=== PATIENT | male | born 1960 | race Caucasian/White ===

== ENCOUNTER → 2019-08-24 11:58 | Outpatient (BNVA) | payer BC, SELFPAY | PROVIDERS: Family Provider Nurse Practitioner; PCP Nurse Practitioner; Visit Provider Nurse Practitioner | DX: E11.65 Type 2 diabetes mellitus with hyperglycemia (principal); E78.2 Mixed hyperlipidemia; I25.10 Atherosclerotic heart disease of native coronary artery without angina pectoris; I10 Essential (primary) hypertension; M25.511 Pain in right shoulder; R39.11 Hesitancy of micturition; J44.9 Chronic obstructive pulmonary disease, unspecified; M25.512 Pain in left shoulder | CPT/HCPCS: 73000; 73030; 80053; 80061; 82044; 83036; 85651; G0103 ==

== ENCOUNTER 2019-10-25 09:18 | Outpatient (CLI) | payer BC, SELFPAY ==
--- NOTE | 2019-10-25 09:36 | NMCV_ITS ---
NM dipti perf SPECT r/s* [id number] Douglas Corona Age: 59 Gender: M : 1960 Exam Date: 10/25/2019 09:36 Ordering Phys: Nancy Cooper MD ([email or web address]) Technologist: MAXIM Pina Exam Location: [facility] Indications: SHORTNESS OF BREATH ATHEROSCLEROSIS STRESS TEST Please see separate stress test report in [facility] for full findings IMAGE PROTOCOL Rest/Stress 1 Exercise Day Radiopharmaceutical Dose (mCi) Administration Site Administered by Rest: Tc-99m 10.5 IV MAXIM Gauthier Sestamibi Stress:Tc-99m 32.8 IV MAXIM Gauthier Sestamibi Rest: 25-Oct-2019 60 Discovery 630 Stress: 25-Oct-2019 15 Discovery 630 Radiopharmaceutical was injected at 85 % maximum heart rate. Images obtained in supine and prone position. SPECT RESULTS Technical Quality: Excellent Raw Data Analysis: Normal Image Corrections: No attenuation or motion correction applied Summed Stress Score: 7 Summed Rest Score: 6 Summed Difference Score: 2 PERFUSION FINDINGS Moderate area of decreased tracer uptake was noted in the mid and apical inferior and mid inferolateral regions. Subtle area of reversibility was noted in the apical inferior and mid inferolateral regions. FUNCTIONAL RESULTS (calculated via Gated SPECT) Stress Image LV EF (%): 57 Stress EDV (mL):134 TID: 0.9 Stress ESV (mL):57 FUNCTIONAL FINDINGS: Segmental wall motion analysis revealed mild diffuse hypokinesia of the septum IMPRESSIONS 1. Myocardial perfusion imaging revealing moderate area of decreased tracer uptake in the mid and apical inferior and mid inferolateral region with a subtle area of reversibility in the apical inferior and mid inferolateral regions, suggestive of myocardial scarring with subtle areas of mike- infarction ischemia, in the distribution of the left circumflex artery/right coronary artery. 2. Normal LV ejection fraction of 57%. 3. LV wall motion analysis revealing mild diffuse hypokinesia of the septum 4. Mildly dilated LV cavity, with an end-systolic volume of 57 mL. No similar previous studies are available for comparison Dr Nancy Cooper MD FACC (Electronically Signed) Final Date: 25 October 2019 16:21 S
--- NOTE | 2019-10-25 09:36 | ECG_ITS ---
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 No acute ST-T changes. At the baseline, the patient's blood pressure was 131/84 mm Hg with a heart rate of 79. The patient exercised for 11 minutes and 15 seconds on a standard Toni protocol. Patient attained a maximum heart rate of 140 beats per minute(86 % of the maximum predicted heart rate) with a blood pressure at the peak exercise of 192/101 mm Hg. The EKG at the peak exercise revealed no significant changes. Patient did not have any chest pain or any significant arrhythmis with the exercise Sestamibi was injected 1 minute prior to the peak exercise During the recovery phase, there were no new changes. Blood pressure at the end of the recovery phase was 79/104 mm Hg with a heart rate of 95 per minute. CONCLUSION: 1. No significant EKG changes with the [treadmill exercise 2. No exercise-induced chest pain or cardiac arrhythmia. Hypertensive response to exercise 3. Good exercise tolerance, attained a maximum of 13.5 METs 4. Sestamibi/Sestamibi perfusion results pending; see separate report. Electronically Signed On 10-28-2019 11:19:37 CDT by Nancy Cooper M.D. [email or web address]
--- NOTE | 2019-10-25 09:38 | USCV_ITS ---
Douglas Corona Age: 59 Gender: M : 1960 Exam Date: 10/25/2019 10:11 Ordering Phys: Nancy Cooper MD ([email or web address]) Technologist: Pierre Vega Exam Location: [facility] Indication: CP BP: 130 / 80 HR: 62 Rhythm: Sinus Technical Quality: Fair MEASUREMENTS (Male / Female) Normal Values 2D ECHO LV Diastolic Diameter PLAX 5.6 cm 4.2 - 5.9 / 3.9 - 5.3 cm LV Systolic Diameter PLAX 3.4 cm IVS Diastolic Thickness 0.9 cm 0.6 - 1.0 / 0.6 - 0.9 cm IVS Systolic Thickness 1.3 cm LVPW Diastolic Thickness 0.8 cm 0.6 - 1.0 / 0.6 - 0.9 cm LVPW Systolic Thickness 2.0 cm LVOT Diameter 2.1 cm LV Ejection Fraction 2D Teich 69.5 % LV Ejection Fraction MOD 2C 74.8 % LV Ejection Fraction 2C AL 74.1 % LA Diameter 3.8 cm LA Width 3.2 cm LA Height 3.9 cm RA Width 3.2 cm RA Height 4.0 cm Aorta at Sinotubular Diameter 2.7 cm M-MODE LV Diastolic Diameter MM 4.3 cm 4.2 - 5.9 / 3.9 - 5.3 cm LV Systolic Diameter MM 3.5 cm LV Ejection Fraction MM Teich 40.0 % IVS Diastolic Thickness MM 0.7 cm 0.6 - 1.0 / 0.6 - 0.9 cm IVS Systolic Thickness MM 1.3 cm LVPW Diastolic Thickness MM 1.1 cm 0.6 - 1.0 / 0.6 - 0.9 cm LVPW Systolic Thickness MM 1.9 cm RV Diastolic Diameter MM 1.3 cm Aortic Annulus Diameter 4.0 cm LA Ao Ratio MM 1.0 MV E Point Septal Separation 1.3 cm DOPPLER AV Peak Velocity 116.0 cm/s LVOT Peak Velocity 102.0 cm/s AV Area Cont Eq vti 2.6 cm squared AV Area Cont Eq pk 3.0 cm squared MV Area PHT 3.5 cm squared Mitral E to A Ratio 1.1 MV E' Velocity 8.0 cm/s Mitral E to MV E' Ratio 10.7 Mitral E to LV E' Lateral Ratio 11.4 Mitral E to LV E' Septal Ratio 10.2 TR Peak Velocity 259.0 cm/s TR Peak Gradient 26.7 mmHg TV Peak E Velocity 114.0 cm/s Right Atrial Pressure 3.0 mmHg Pulmonary Artery Systolic Pressu 29.8 mmHg PV Peak Velocity 125.0 cm/s FINDINGS Left Ventricle Normal LV size with a diminished ejection fraction of around 45 to 50%. Diffuse hypokinesia left ventricle. Right Ventricle The right ventricle is normal in size and function. Right Atrium The right atrium is normal in size. Left Atrium The left atrium is normal in size. Mitral Valve Thickened mitral valve. Trace to mild mitral valve regurgitation. Aortic Valve Thickened aortic valve. Trace aortic valve regurgitation. Tricuspid Valve Trace tricuspid valve regurgitation. Estimated pulmonary artery peak systolic pressure of 30 mmHg Pulmonic Valve Structurally normal pulmonic valve without significant stenosis. There is no pulmonic regurgitation. Pericardium Normal pericardium without effusion. Aorta Normal ascending aorta dimension. CONCLUSIONS Normal LV size with a diminished ejection fraction of around 45 to 50%. Diffuse hypokinesia left ventricle. Thickened mitral valve. Trace to mild mitral valve regurgitation. Thickened aortic valve. Trace aortic valve regurgitation. Trace tricuspid valve regurgitation. Estimated pulmonary artery peak systolic pressure of 30 mmHg. There is no pericardial effusion. There are no intracardiac masses. No previous studies available for comparison Dr Nancy Cooper MD FAC (Electronically Signed) Final Date: 26 October 2019 21:59 S
[2019-10-25 10:17] VITALS: BMI 23.1
[2019-10-25 11:43] VITALS: BP 179/104; PULSE 97
== END 2019-10-25 09:19 | disposition home or self-care (01) ==
LOC: CDL 09:22
PROVIDERS: Family Provider Nurse Practitioner; PCP Nurse Practitioner; Visit Provider Internal Medicine Cardiovascular Disease
DX: R06.02 Shortness of breath (principal); I25.10 Atherosclerotic heart disease of native coronary artery without angina pectoris; R07.9 Chest pain, unspecified; I08.3 Combined rheumatic disorders of mitral, aortic and tricuspid valves; I70.90 Unspecified atherosclerosis; I25.9 Chronic ischemic heart disease, unspecified
CPT/HCPCS: 78452; 93017; 93306; A9500

== ENCOUNTER → 2020-04-25 12:03 | Outpatient (BNVA) | payer BC, SELFPAY | PROVIDERS: Family Provider Nurse Practitioner; PCP Nurse Practitioner; Visit Provider Nurse Practitioner | DX: I10 Essential (primary) hypertension (principal); J44.9 Chronic obstructive pulmonary disease, unspecified; E78.2 Mixed hyperlipidemia; E11.65 Type 2 diabetes mellitus with hyperglycemia; R39.11 Hesitancy of micturition; I25.10 Atherosclerotic heart disease of native coronary artery without angina pectoris; M25.511 Pain in right shoulder; M25.512 Pain in left shoulder; L03.90 Cellulitis, unspecified | CPT/HCPCS: 80053; 80061; 81000; 82043; 83036 ==

== ENCOUNTER → 2020-06-28 16:22 | Outpatient (BNVA) | payer SELFPAY | PROVIDERS: Family Provider Nurse Practitioner; PCP Nurse Practitioner; Visit Provider Nurse Practitioner | DX: R20.0 Anesthesia of skin (principal); R20.2 Paresthesia of skin; M79.605 Pain in left leg | CPT/HCPCS: 82607 ==

== ENCOUNTER → 2020-11-27 11:27 | Outpatient (BNVA) | payer OTHER, SELFPAY | PROVIDERS: PCP Nurse Practitioner; Visit Provider Nurse Practitioner | DX: E13.65 Other specified diabetes mellitus with hyperglycemia (principal); M10.9 Gout, unspecified; I10 Essential (primary) hypertension; J44.9 Chronic obstructive pulmonary disease, unspecified; E78.2 Mixed hyperlipidemia; R39.11 Hesitancy of micturition; M25.511 Pain in right shoulder; M25.512 Pain in left shoulder; N52.9 Male erectile dysfunction, unspecified | CPT/HCPCS: 80053; 80061; 83036; 84550; 85025; 85651; 86140 ==

== ENCOUNTER → 2021-05-08 09:30 | Outpatient (BNVA) | payer OTHER, SELFPAY | PROVIDERS: PCP Nurse Practitioner; Visit Provider Nurse Practitioner | DX: Z20.822 Contact with and (suspected) exposure to COVID-19 (principal) | CPT/HCPCS: 87635 ==

== ENCOUNTER → 2021-07-02 16:52 | Outpatient (BNVA) | payer OTHER, SELFPAY | PROVIDERS: PCP Nurse Practitioner; Visit Provider Nurse Practitioner | DX: E13.65 Other specified diabetes mellitus with hyperglycemia (principal); E78.2 Mixed hyperlipidemia; I10 Essential (primary) hypertension; R39.11 Hesitancy of micturition; M25.511 Pain in right shoulder; M25.512 Pain in left shoulder; M25.50 Pain in unspecified joint | CPT/HCPCS: 80053; 80061; 83036; 86140; 86431 ==

== ENCOUNTER → 2022-03-20 12:21 | Outpatient (BNVA) | payer MEDICARE, SELFPAY | PROVIDERS: PCP Nurse Practitioner; Visit Provider Nurse Practitioner | DX: E13.65 Other specified diabetes mellitus with hyperglycemia (principal) | CPT/HCPCS: 80053; 80061; 81000; 82043; 83036 ==

== ENCOUNTER → 2022-07-24 11:00 | Outpatient (BNVA) | payer MEDICARE, SELFPAY | PROVIDERS: PCP Nurse Practitioner; Visit Provider Nurse Practitioner | DX: E13.65 Other specified diabetes mellitus with hyperglycemia (principal); Z12.5 Encounter for screening for malignant neoplasm of prostate | CPT/HCPCS: 80053; 80061; 82043; 83036; G0103 ==

== ENCOUNTER → 2022-11-27 15:22 | Outpatient (BNVA) | payer MEDICARE, SELFPAY | PROVIDERS: PCP Nurse Practitioner; Visit Provider Nurse Practitioner | DX: E11.65 Type 2 diabetes mellitus with hyperglycemia (principal) | CPT/HCPCS: 80053; 83036 ==

== ENCOUNTER → 2022-12-03 09:44 | Outpatient (BNVA) | payer MEDICARE, SELFPAY | PROVIDERS: PCP Nurse Practitioner; Visit Provider Nurse Practitioner | DX: M47.816 Spondylosis without myelopathy or radiculopathy, lumbar region (principal); M54.50 Low back pain, unspecified; M79.604 Pain in right leg | CPT/HCPCS: 72100 ==

== ENCOUNTER 2023-01-02 14:06 | Outpatient (CLI) | payer MEDICARE, SELFPAY ==
--- NOTE | 2023-01-02 14:30 | MR_ITS ---
WS: [id number] MRI LUMBAR SPINE NONCONTRAST HISTORY: M54.50 - Low back pain, unspecified COMPARISON: None available. TECHNIQUE: Sagittal and axial multisequence imaging is submitted. Focal areas of disc protrusion and facet arthritis in the cervical and thoracic spines. Mild stenosis at C6-7. 2 mm retrolisthesis of L2. Otherwise alignment is normal. There is moderate disc space narrowing and desiccation throughout the lumbar spine. Benign hemangioma at L3. No marrow edema or fracture. Conus terminates normally at L1. L1-L2: Moderate annular disc bulging. Focal LEFT paracentral disc protrusion extending into the subar ticular recess. Moderate ligamentum flavum and facet arthritis. There is disc contacting and encroach ing upon the subarticular recesses and the traversing L2 nerve roots. Mild central and bilateral suba rticular recess stenosis. L2-L3: Diffuse annular disc bulging with osteophytic ridging. LEFT paracentral disc protrusion. Annul ar disc bulging resulting in moderate central, bilateral subarticular recess and RIGHT foraminal sten osis. More severe LEFT foraminal stenosis. L3-L4: Diffuse annular disc bulging and osteophytic ridging. There is a large central disc protrusion extending just cephalad and caudad to the disc level over a length of 1.5 cm. There is significant c ontact on the ventral thecal sac and narrowing of the subarticular recesses. Ligamentum flavum and fa cet arthritis. Severe central, bilateral subarticular recess and moderate foraminal stenosis. L4-L5: Diffuse annular disc bulging with a small central disc protrusion. Moderate ligamentum flavum and facet arthritis. Mild central and bilateral subarticular recess and foraminal stenosis. There is disc contacting the traversing L5 nerve roots. L5-S1: Mild annular disc bulging. Broad-based asymmetric disc bulging to the LEFT. LEFT paracentral a nd foraminal broad-based disc protrusion. Disc protrusion contacts the LEFT S1 nerve root. Moderate b ilateral foraminal stenosis. Mild hyperplasia of the adrenal glands. IMPRESSION: 1. Multiple levels of central and foraminal stenoses and disc protrusions throughout the lumbar spine . 2. L3-4: Large central disc protrusion causing severe central, bilateral subarticular recess and mode rate foraminal stenosis. 3. L4-5: Moderate central, bilateral subarticular recess and foraminal stenosis. Disc contacts the tr aversing L5 nerve roots. 4. L2-3: LEFT paracentral disc protrusion and annular disc bulging resulting in moderate central, eduardo ateral subarticular recess and RIGHT foraminal stenosis. Severe LEFT foraminal stenosis. 5. L1-2: Focal LEFT paracentral disc protrusion extending into the subarticular recess. Disc protrusi on and bulging contacting the traversing L2 nerve roots. Mild central and bilateral subarticular rece ss stenosis. 6. L5-S1: LEFT paracentral and foraminal broad-based disc protrusion disc protrusion contacts the LEF T S1 nerve root. Moderate bilateral foraminal stenosis.
== END 2023-01-02 14:07 | disposition home or self-care (01) ==
PROVIDERS: PCP Nurse Practitioner; Visit Provider Nurse Practitioner
DX: M48.061 Spinal stenosis, lumbar region without neurogenic claudication; M51.26 Other intervertebral disc displacement, lumbar region; M51.27 Other intervertebral disc displacement, lumbosacral region
CPT/HCPCS: 72148

== ENCOUNTER 2023-06-11 14:47 | Outpatient (CLI) | payer MEDICARE, SELFPAY ==
--- NOTE | 2023-06-11 15:00 | CT_ITS ---
WS: [id number] LDCT LUNG CANCER SCREENING HISTORY: Z87.891 - Personal history of nicotine dependence TECHNIQUE: Axial imaging performed from the apices to 1 cm below the costophrenic angles. Coronal and sagittal reformats are submitted with axial MIP series. All CT scans at [facility] use at least one of these dose optimization techniques: automated exposure control; mA and/or kV adjustment per patient size (includes targeted exams where dose is matched to clinical indication); or iterativ e reconstruction. DLP: 64.40 mGy.cm DIvol: Mean CTDIvol: 1.10 (mGy) COMPARISON: None available. Diagnostic quality: Satisfactory Lungs: No pulmonary mass or nodule. No endobronchial lesions. Heart: Normal size heart with no pericardial effusion.. Advanced coronary artery calcifications. Other findings: Mild atherosclerosis aorta. No mediastinal or hilar adenopathy. Thoracic aorta is andrew y mildly ectatic but not aneurysmal. Small hiatal hernia. 16 mm LEFT adrenal adenoma. IMPRESSION: CT/CT lung screening [id number] LUNG-RADS: 1S-Negative with Significant Findings FOLLOW UP: 12 Month: Continue annual screening with LDCT OTHER FINDINGS (S MODIFIER): Advanced coronary artery calcification. Consider e valuation by cardiology.
== END 2023-06-11 14:48 | disposition home or self-care (01) ==
LOC: RAD 14:47
PROVIDERS: PCP Nurse Practitioner; Visit Provider Nurse Practitioner
DX: Z12.2 Encounter for screening for malignant neoplasm of respiratory organs (principal); Z87.891 Personal history of nicotine dependence
CPT/HCPCS: 71271

== ENCOUNTER → 2023-06-25 15:13 | Outpatient (BNVA) | payer MEDICARE, SELFPAY | PROVIDERS: PCP Nurse Practitioner; Visit Provider Nurse Practitioner | DX: E11.9 Type 2 diabetes mellitus without complications (principal) | CPT/HCPCS: 80053; 80061; 83036; 84403 ==

== ENCOUNTER → 2024-01-05 08:37 | Outpatient (BNVA) | payer MEDICARE, SELFPAY | PROVIDERS: PCP Nurse Practitioner; Visit Provider Nurse Practitioner | DX: Z12.5 Encounter for screening for malignant neoplasm of prostate (principal); E11.9 Type 2 diabetes mellitus without complications | CPT/HCPCS: 80053; 82607; 83036; G0103 ==

== ENCOUNTER → 2024-06-21 08:35 | Outpatient (BNVA) | payer MEDICARE, SELFPAY | PROVIDERS: PCP Nurse Practitioner; Visit Provider Nurse Practitioner | DX: E11.65 Type 2 diabetes mellitus with hyperglycemia (principal); I25.10 Atherosclerotic heart disease of native coronary artery without angina pectoris; E78.2 Mixed hyperlipidemia; M54.50 Low back pain, unspecified; M79.604 Pain in right leg; I10 Essential (primary) hypertension; R39.11 Hesitancy of micturition; M25.511 Pain in right shoulder; M25.512 Pain in left shoulder; E13.65 Other specified diabetes mellitus with hyperglycemia; Z12.5 Encounter for screening for malignant neoplasm of prostate | CPT/HCPCS: 80053; 80061; 83036; G0103 ==

== ENCOUNTER → 2024-09-13 09:23 | Outpatient (BNVA) | payer MEDICARE, SELFPAY | PROVIDERS: PCP Nurse Practitioner; Visit Provider Nurse Practitioner | DX: E13.65 Other specified diabetes mellitus with hyperglycemia (principal); R97.20 Elevated prostate specific antigen [PSA] | CPT/HCPCS: 80053; 83036; 84153 ==

== ENCOUNTER → 2024-11-22 08:11 | Outpatient (BNVA) | payer MEDICARE, SELFPAY | PROVIDERS: PCP Nurse Practitioner; Visit Provider Nurse Practitioner | DX: E13.65 Other specified diabetes mellitus with hyperglycemia (principal) | CPT/HCPCS: 80053; 80061; 81000; 82043; 82607; 83036 ==

== ENCOUNTER → 2025-03-21 14:05 | Outpatient (BNVA) | payer MEDICARE, SELFPAY | PROVIDERS: PCP Nurse Practitioner; Visit Provider Nurse Practitioner | DX: E13.65 Other specified diabetes mellitus with hyperglycemia (principal) | CPT/HCPCS: 80053; 83036 ==